=== PATIENT | male | born 1945 | race Caucasian/White ===

== ENCOUNTER 2017-11-22 11:32 | Observation (INO) | payer OTHER ==
--- NOTE | 2017-11-22 12:06 | EDPHY ---
H & P Time Seen by Provider: 11/22/17 11:54 HPI/ROS: CHIEF COMPLAINT: Trouble with short-term memory HISTORY OF PRESENT ILLNESS: Patient presents with his partner. He was doing normally this morning but 10:00 a.m. Suddenly had trouble with short-term memory. They are having guests over this weekend, and his partner asked him to move a table up stairs from the basement but he asked her why and that he did not remember people were coming over. He did not remember who the president was. These are all abnormal findings for him, lasted about 20 min, then resolved. Not associated with weakness or numbness in extremities double walking or headache or visual symptoms or difficulty with speech. REVIEW OF SYSTEMS: Eye: no change in vision ENT: no sore throat Cardiac: no chest pain or syncope Pulmonary: no cough or SOB Abdomen: no vomiting, diarrhea, abdominal pain Musculoskeletal: no back pain Skin: no rash Neuro: no headache Constitutional: no fever : no urinary symptoms A comprehensive 10 point review of systems is otherwise negative aside from elements mentioned in the history of present illness. PAST MEDICAL HISTORY: Cholesterol Social history: Primary care is Dr. Noah Aguirre General Appearance: Alert and conversant, cooperative. Eyes: No scleral icterus. Pupils equal and reactive extraocular motion intact ENT, Mouth: Normal mucous membranes. No tongue laceration or abrasion Respiratory: Normal respiratory effort, breath sounds equal, lungs are clear to auscultation. Cardiovascular: Regular rate and rhythm. Gastrointestinal: Abdomen is soft and non tender. Neurological: Alert, face symmetric, normal motor and sensory in extremities. Ambulatory, not ataxic, fluent speech, normal [id number] bilaterally without any pronator drift. Skin: Warm and dry, no rashes. Musculoskeletal: No peripheral edema. Psychiatric: Not agitated. Emergency Department course/MDM: Differential includes but not limited to transient global amnesia, stroke, TIA, intracranial mass or bleed. CT head, EKG, labs. Not a stroke alert as he is currently asymptomatic. 1314: Results discussed and plan for admission per Dr. Perry recommendation, consented. Per he recommends admission for TIA workup. Smoking Status: Never smoked Constitutional: Initial Vital Signs Temperature (C) 36.7 C 11/22/17 11:34 Heart Rate 83 11/22/17 11:34 Respiratory Rate 16 11/22/17 11:34 Blood Pressure 170/89 H 11/22/17 11:34 O2 Sat (%) 96 11/22/17 11:34 O2 Delivery Mode Room Air Allergies/Adverse Reactions: No Known Allergies Allergy (Unverified 11/22/17 11:36) Medical Decision Making - Diagnostics EKG Interpretation: 12-lead EKG interpreted by me; official reading is in trace master. My interpretation is sinus rhythm with left anterior fascicular block rate 76. Imaging Results: Imaging Impressions Head CT 11/22/17 12:04 Impression: 1. Mild age-related atrophy. 2. No hemorrhage, mass effect, or definite acute peripheral infarct. 3. Moderate nonspecific hypodensities in the white matter of bilateral cerebral hemispheres. Differential diagnosis includes microvascular ischemic disease, post-infectious/post-inflammatory sequela, atypical demyelinating disease, or migraine-related sequela. Small white matter lacunar infarcts may also have this appearance. If symptoms worsen, additional imaging may be necessary. Findings discussed with Zachery Pineda M.D. at 13:06 hour, 11/22/2017. Negative head CT per Dr. Leach at 1:06 p.m. Imaging: Discussed imaging studies w/ yard caller Radiologist Differential Diagnosis: Differential considered including but not limited to partial seizure, TIA, transient global amnesia, intracranial mass or bleed, metabolic abnormality. Consult/Admit Bed Type: [facility] at 1300, [facility] for [place] 1321 - Data Points Laboratory Results: Laboratory Results 11/22/17 12:30 11/22/17 12:30 11/22/17 11/22/17 11/22/17 12:35 12:30 12:30 WBC RBC Hgb Hct MCV MCH MCHC RDW Plt Count MPV Neut % (Auto) Lymph % (Auto) Emmons % (Auto) Eos % (Auto) Baso % (Auto) Nucleat RBC Rel Count Absolute Neuts (auto) Absolute Lymphs (auto) Absolute Monos (auto) Absolute Eos (auto) Absolute Basos (auto) Absolute Nucleated RBC Immature Gran % Immature Gran # PT 12.6 SEC SEC (12.0-15.0) INR 0.92 (0.83-1.16) Sodium 142 mEq/L mEq/L (135-145) Potassium 4.3 mEq/L mEq/L (3.3-5.0) Chloride 105 mEq/L mEq/L (97-110) Carbon Dioxide 25 mEq/l mEq/l (22-31) Anion Gap 12 mEq/L mEq/L (8-16) BUN 18 mg/dL mg/dL (7-23) Creatinine 0.9 mg/dL mg/dL (0.7-1.3) Estimated GFR > 60 Glucose 103 mg/dL H mg/dL (70-100) Calcium 9.9 mg/dL mg/dL (8.5-10.4) POC Troponin I 0.00 ng/mL ng/mL (0.00-0.08) 11/22/17 12:30 WBC 4.51 10^3/uL 10^3/uL (3.80-9.50) RBC 4.91 10^6/uL 10^6/uL (4.40-6.38) Hgb 16.1 g/dL g/dL (13.7-17.5) Hct 46.8 % % (40.0-51.0) MCV 95.3 fL fL (81.5-99.8) MCH 32.8 pg pg (27.9-34.1) MCHC 34.4 g/dL g/dL (32.4-36.7) RDW 13.0 % % (11.5-15.2) Plt Count 233 10^3/uL 10^3/uL (150-400) MPV 10.0 fL fL (8.7-11.7) Neut % (Auto) 73.3 % % (39.3-74.2) Lymph % (Auto) 16.6 % % (15.0-45.0) Emmons % (Auto) 8.6 % % (4.5-13.0) Eos % (Auto) 0.7 % % (0.6-7.6) Baso % (Auto) 0.4 % % (0.3-1.7) Nucleat RBC Rel Count 0.0 % % (0.0-0.2) Absolute Neuts (auto) 3.30 10^3/uL 10^3/uL (1.70-6.50) Absolute Lymphs (auto) 0.75 10^3/uL L 10^3/uL (1.00-3.00) Absolute Monos (auto) 0.39 10^3/uL 10^3/uL (0.30-0.80) Absolute Eos (auto) 0.03 10^3/uL 10^3/uL (0.03-0.40) Absolute Basos (auto) 0.02 10^3/uL 10^3/uL (0.02-0.10) Absolute Nucleated RBC 0.00 10^3/uL 10^3/uL (0-0.01) Immature Gran % 0.4 % % (0.0-1.1) Immature Gran # 0.02 10^3/uL 10^3/uL (0.00-0.10) PT INR Sodium Potassium Chloride Carbon Dioxide Anion Gap BUN Creatinine Estimated GFR Glucose Calcium POC Troponin I Point of Care Test Results: Chemistry 11/22/17 12:35 POC Troponin I 0.00 ng/mL ng/mL (0.00-0.08) Departure - Departure Disposition: [facility] Inpatient Acute Clinical Impression: Transient cerebral ischemia Qualifiers: Transient cerebral ischemia type: unspecified Qualified Code(s): G45.9 - Transient cerebral ischemic attack, unspecified Condition: Good
--- NOTE | 2017-11-22 12:22 | CPEKG ---
Heart Rate: 76 RR Interval: 789 P-R Interval: 148 QRSD Interval: 90 QT Interval: 400 QTC Interval: 450 P Rigby: 60 QRS Rigby: -44 T Wave Rigby: 25 EKG Severity - ABNORMAL ECG - EKG Impression: SINUS RHYTHM EKG Impression: LEFT ANTERIOR FASCICULAR BLOCK Electronically Signed By: Zachery Pineda 22-Nov-2017 12:35:29
[2017-11-22 12:45] LABS: PLATELET COUNT 233 10^3/uL (150-400)
[2017-11-22 12:52] LABS: INR 0.92 (0.83-1.16); PROTIME(PATIENT) 12.6 SEC (12.0-15.0)
--- NOTE | 2017-11-22 16:26 | ECHO ---
[email or web address] [address] Main: [phone] Fax: Transthoracic Echocardiogram Name: Kosta EUGENE MR#: [id number] Study Date: 11/22/2017 Study Time: 02:49 PM Date of : 1945 Age: 72 year(s) Height: 172.7 cm (68 in.) Weight: 78.93 kg (174 lb.) BSA: 1.93 m2 Gender: Male Examination: Echo Indication: TIA, Memory loss Image Quality: Contrast: Requested by: Scar Hernandez BP: 122 mmHg/78 mmHg Heart Rate: Rhythm: Indication: TIA, Memory loss Procedure Staff Event Crew Technician: Jordan Jaimes RDCS Reading Physician: Antonio Crisostomo MD Requesting Provider: Conclusions: Normal size left ventricle. Normal global systolic LV function. EF is 73 %. The mitral valve is normal in appearance and function. The aortic valve is tri-leaflet. There is no aortic valve regurgitation. No aortic valve stenosis is present. There is mild focal calcification on the right coronary aortic valve cusp.. The pulmonary artery pressure is normal. No old studies for comparison. Measurements: Chambers Valvular Assessment AV/MV Valvular Assessment TV/PV Normal Normal Normal Name Value Range Name Value Range Name Value Range Ao Cece (MM): 3.1 cm (2.2 cm-3.7 AV Vmax: 1.97 m/s (1 m/s-1.7 TR Vmax: 2.57 mm/s ( - ) cm) m/s) TR PGmax: 26 mmHg ( - ) IVSd (2D): 0.7 cm (0.6 cm-1.1 AV maxP mmHg ( - ) syst. PAP: 31 mmHg ( - ) cm) AV meanP mmHg ( - ) PV Vmax: 0.88 m/s (0.6 m/s-0.9 LVDd (2D): 4.6 cm (4.2 cm-5.9 LVOT Vmax: 1.03 m/s (0.7 m/s-1.1 m/s) cm) m/s) PV PGmax: 3 mmHg ( - ) LVDs (2D): 2.6 cm (2.1 cm-4 MV E Vmax: 0.81 m/s ( - ) cm) MV A Vmax: 0.98 m/s ( - ) LVPWd (2D): 1.0 cm (0.6 cm-1 MV E/A: 0.83 ( - ) cm) LVEF (2D): 73 (>=54 %) Continued Measurements: Chambers Valvular Assessment AV/MV Valvular Assessment TV/PV Patient: Kosta EUGENE Study Date: 11/22/2017 Page 1 of 2 02:49 PM Name Value Name Value Name Value LADs Lon.2 cm MV E' Septal: 0.07 m/s CVP (est.): 5 mmHg LA Area: 18.1 cm2 MV E/E' Septal: 11.30 MV E/E' Lateral: 7.40 Findings: Left Ventricle: Normal size left ventricle. No LV hypertrophy. Normal global systolic LV function. EF is 73 %. No regional wall motion abnormality. Diastolic dysfunction is present. . Right Ventricle: Normal size right ventricle. Normal RV function. Left Atrium: The left atrium is normal in size. Right Atrium: The right atrium is normal in size. Mitral Valve: The mitral valve is normal in appearance and function. There is no mitral valve regurgitation. Aortic Valve: The aortic valve is tri-leaflet. There is no aortic valve regurgitation. No aortic valve stenosis is present. There is mild focal calcification on the right coronary aortic valve cusp.. Tricuspid Valve: The tricuspid valve appears normal. Trivial tricuspid valve regurgitation. The pulmonary artery pressure is normal. Pulmonic Valve: The pulmonic valve is normal in appearance and function. Trivial pulmonic valve regurgitation. Aorta: The aorta is normal. Pericardium: No pericardial effusion. (No Signature Object) Patient: Kosta EUGENE Study Date: 11/22/2017 Page 2 of 2 02:49 PM [id number]
[2017-11-22] MEDS ORDERED: LORazepam 1 MG TAB PO ONE (16:47)
--- NOTE | 2017-11-22 17:29 | PDGENHP ---
History and Physical History and Physical: CC: Transient memory loss this morning HISTORY: This patient has been feeling well recently and has little in way of medical history was at home with his partner today when he suffered a transient episode of memory loss. What he and his partner both recall is that she asked him to move the table to another room because they have relatives coming in this weekend, and he completely forgot that the relatives were coming this week in even though this is something they have been planning for some time now and talking about frequently. When reminded that they were coming he says that it took him a few minutes but he did then remember that. With this going on however his partner started asking when questions and he had inability to name the president of the country, and answer certain other questions. He knew who he was and who she was and recognize that he was in their home. At no time did either of them notice any other focal neurologic dysfunction, visual change, balance or equilibrium issues, and he did not have headache. He was walking talking and doing other tasks without difficulty. He did feel nervous because of the memory symptoms. He denies any palpitations, chest pain, shortness of breath, fever symptoms, recent injuries or pump to the head, and no other significant medical symptoms at this time. He does state that he has had memory lapses in the past but these typically occur her 1st thing in the morning when he has had a lot to drink and it takes him a while to wake up fully and remember what he did the night before. He typically drinks quite a bit often fiber 6 oz of liquor, a bottle and a half to 2 bottles of wine, and sometimes some beer on top of that. Most of this alcohol is consumed in the evenings. He has been drinking like this for quite some time and does it on a daily basis. He has never been through alcohol withdrawal but does not go for any periods without drinking ROS: A comprehensive 10 system review revealed no other significant findings PAST MEDICAL HISTORY: Ongoing severe alcohol abuse Hyperlipidemia on statin Otherwise quite healthy without hospitalizations, surgeries, serious injuries or illnesses FAMILY MEDICAL HISTORY: No specific significant concerning family history SOCIAL HISTORY: Lives with Emerald, his partner Drinks very heavily, details above No tobacco use no street drugs MEDICATIONS: Daily Lipitor PHYSICAL EXAMINATION: Vital Signs: Some hypertension here initially otherwise stable without fever Pulp Grinder Feeder: All sinus rhythm Examination: General: alert, oriented, good mentation, relaxed; his memory now is very good on my exam with no specific issues identified Neurologic: normal speech/language, normal oracle applications analyst, no focal weakness, no pronator drift, no balance issues, no abnormal reflexes Skin: warm, dry, good color, no rash HEENT: normal Neck: no mass or jvd Resps: relaxed Lungs: clear breath sounds Heart: regular, no murmur Abdomen: soft, nondistended, nontender, +BS, no mass Upper Extremities: normal Lower Extremities: no edema, warm No Bleeding or bruising IV site: looks normal LABORATORY DATA: Normal troponin Unremarkable CBC, metabolic panel, coagulation studies RADIOLOGY STUDIES: CT scan of the head done in ER, I reviewed images: No acute abnormalities. Some ischemic gliosis type changes are noted He has had Doppler ultrasound of the carotid arteries with no evidence of any stenoses or plaque Echocardiogram has been done and read by warehouse logistics coordinator and is normal 12 LEAD EKG: Normal 12 lead EKG on my assessment of the tracing from the ER ASSESSMENT: # episode of transient memory dysfunction, resolved after 20 min at home without recurrence # hyperlipidemia on statin # severe alcohol abuse, chronic with very large daily consumption # risk of withdrawal, likely has some vitamin deficiency # [id number] blood pressure elevations now with no history of hypertension , likely secondary to his acute event This episode may be transient global amnesia although it was a fairly limited memory loss with most of his memory intact at the time, and episode lasting only 20 min. It does not particularly sound like was TIA however as we were not able to examine him during the episode will take the safe approach and assess him for any stroke risk factors so that we can recommend preventive care , and will watch him here with neurologic checks by the nurses in case he does have anything that starts look like stroke where we can begin treatment right away. Mass or other illness could potentially cause symptoms and will be further assessed radiologically PLANS: * Observation status on the neuro medical floor * Cardiac EKG monitoring * MRI of the brain has been ordered to look for any other causes of his symptoms (based on past MRI experiences he will need Ativan for this MRI study which could potentially muddy his examinations on neuro checks going forward and this should be taken into consideration as we assess the nursing data and examine him.) * Will follow his blood pressures closely. If they remain at the current ranged and resolve no treatment will be needed. Will treat if they get significantly more elevated * Continue statin and add daily aspirin * Dr. Washington will see the patient in the morning * Frequent neuro checks and TIA protocols, if the patient has any recurrent episodes reassess and if anything looks like a stroke he would be a candidate for thrombolysis * I had a very long talk with the patient and his partner about his alcohol abuse and the dangers is in parts. We discussed the possibility of alcohol withdrawal if he stops suddenly. I did recommend very strongly that he look carefully at his future and consider stopping alcohol use altogether whether that be on his own or through a rehabilitation setting or with other counseling. He did understand all this and was a very willing participate in the conversation * Will give thiamin at this time for presumed deficiency * Will give low-dose alcohol at this time at 1 oz of vodka twice daily to help insure that withdrawal does not start up in the midst of this current assessment I have reviewed the patient's case in detail with Dr. Scar Hernandez I have reviewed the patient's past medical records as part of this assessment, including previous outpatient laboratory studies
[2017-11-22] MEDS ORDERED: ONDANSETRON 4 MG/2 ML VIAL IVP PRN (17:32)
[2017-11-22] MEDS ORDERED: ACETAMINOPHEN 325 MG TAB PO PRN (17:32)
[2017-11-22] MEDS ORDERED: ONDANSETRON DISINTEGRATING 4 MG TAB PO PRN (17:32)
[2017-11-22] MEDS: THIAMINE HCL 100 MG TAB PO SCH (18:48)
[2017-11-22] MEDS: VODKA 50 ML BOTTLE PO SCH (20:47)
[2017-11-23 07:57] VITALS: BP 136/84
[2017-11-23] MEDS ORDERED: ASPIRIN EC 325 MG TAB PO SCH (09:00)
[2017-11-23] MEDS ORDERED: ATORVASTATIN CALCIUM 20 MG TAB PO SCH (09:00)
--- NOTE | 2017-11-23 09:14 | NEUROPROG ---
Assessment: [id number] - Neurology Consult: - CC: Dr. Zachery Rose consulted neurology for transient memory issues. - HPI: Pt admitted to [facility] on 11/22/17 when he had 20 minutes of impaired short term memory with full recovery afterwards. No associated weakness, numbness, or other neurologic symptoms. Head CT shows no acute changes. I initially saw the patient on 11/23/17. Neurologic exam normal and patient feels back to normal. Brain MRI, TTE, and carotid U/S all unremarkable. I felt the patient likely had transient global amnesia which is a self limited condition. I recommended a daily aspirin 81 mg qd and /u with me in 1-4 weeks after hospital discharge. - PMHx: HLD - SHx: speaks hong konger FHx: NC - ROS: Pt denied acute fever, total vision loss, active severe chest pain, respiratory failure, total body severe rash, total bowel/bladder incontinence, psychosis, active seizures, or active bleeding - O: VS reviewed General: Alert Eyes: Fundoscopic exam not able to visualize optic disks CV: Heart RRR, no murmur, no carotid bruit Lungs: Clear to auscultation bilaterally, no rhonchi or rales Neuro: - Mental: . Oriented x person/place/date . concentration appears normal . speech fluency/comprehension normal . memory appears normal . fund of knowledge appear intact - Cranial Nerves: . II: PERRL, VFFTC . III/IV/: EOMI, no nystagmus, normal smooth pursuits, no Ptosis . V: facial sensation intact to LT . VII: face symmetric to eye closure and smile . VIII: hearing intact to conversation . IX/X: uvula raises symmetrically . XI: SCM 5/5 B/L strength . XII: tongue protrudes midline w/nl strength - Motor: . Tone: normal tone in all 4 extremity . Strength: no pronator drift, strength 5/5 throughout (B/L delt, bic, tri, hand rubbing bed operator, hf/he, df/pf) - Reflexes: B/L bic/BR/patella 2/4 - Sensory: all 4 extremity intact to light touch - Coord: [id number]-ms-ftcl wnl, RUBIO wnl, erij-cc-scye wnl - Gait: deferred - NIH SS 0 - Labs: 11/22/17- CBC wnl, Chem wnl, LDL 104, H1AC 5.9 - Rads: 11/22/17- Head CT: no acute changes (I personally visualized the images on ) 11/22/17- TTE: EF 73%, no cardiac thrombus reported 11/22/17- Brain MRI w/o con: no acute changes 11/22/17- Carotid U/S: unremarkable - Assessment: 1. Transient Global Amnesia (TGA): Normal neurologic exam on 11/22/17. Unremarkable brain MRI, TTE, and carotid U/S. TGA is a self limited diagnosis but I will recommend patient begin daily aspirin 81 mg qd to cover small chance this was an atypical TIA. - Plan: - Change ASA 325 mg qd to 81 mg qd for stroke prevention - No further neurologic w/u needed, neurology will sign off - F/U in neurology clinic 1-4 weeks after discharge with Dr. Hernandez Objective: Vital Signs Temp Pulse Resp BP Pulse Ox 36.7 C 65 16 136/84 H 95 11/23/17 07:57 11/23/17 07:57 11/23/17 07:57 11/23/17 07:57 11/23/17 07:57 11/22/17 11/23/17 11/24/17 05:59 05:59 05:59 Intake Total 350 Balance 350 PT 12.6 SEC (12.0-15.0) 11/22/17 12:30 INR 0.92 (0.83-1.16) 11/22/17 12:30 Allergies/Adverse Reactions: No Known Allergies Allergy (Verified 11/22/17 13:45)
--- NOTE | 2017-11-23 10:23 | ASMTLACE ---
LACE Length of stay for Answers: 1 day current admission Acuity / Level of Answers: No Care: Did the patient have an inpatient admission? Comorbidities - select Answers: Other Notes: HLD all that apply # of Emergency department Answers: 1-2 visits in the last 6 months Social determinants Answers: History of substance abuse (ETOH, street drugs, prescription drugs, etc.) Score: 6 Date Signed: 11/23/2017 10:22 AM Electronically Signed By:RAMON Ramires
[2017-11-23] MEDS: VODKA 50 ML BOTTLE PO SCH (11:05)
[2017-11-23] MEDS: THIAMINE HCL 100 MG TAB PO SCH (11:06)
--- NOTE | 2017-11-23 14:48 | ASMTCMCOM ---
CM Note CM Note Notes: Pt medically stable for d/c, no CM d/c needs identified. Date Signed: 11/23/2017 02:47 PM Electronically Signed By:RAMON Ramires
--- NOTE | 2017-11-23 17:47 | PDDCSUM ---
Discharge Summary Discharge Summary: DISCHARGE SUMMARY FOLLOW-UP ITEMS: Jacek alcohol consumption DATE OF ADMISSION: 11/22/2017 DATE OF DISCHARGE: 11/23/2017 DISCHARGE DIAGNOSES: 1. Suspected acute transient global amnesia 2. Chronic alcohol abuse CONSULTATIONS: Neurology PROCEDURES / IMAGING: Brain MRI demonstrating no infarct, transthoracic echocardiogram demonstrating no significant valvular issues, carotid ultrasounds demonstrating no flow- limiting stenosis CHIEF COMPLAINT: Impaired memory for approximately 20 min, spontaneously resolved SUBJECTIVE: Patient is feeling well at time discharge, his memory has returned PHYSICAL EXAM ON DISCHARGE: Systolic blood pressure 130-170, heart 50-70, afebrile overnight, satting well on room air, alert awake oriented x3, no apparent distress, no tremulousness LABS ON DISCHARGE: Hemoglobin A1c 5.9%, LDL 104 HOSPITAL COURSE BY PROBLEM: The patient presented with acute, impaired short-term memory, lasting approximately 20 min, without any associated paresthesias or paresis. The patient's symptoms resolved without any intervention. The patient underwent evaluation with MRI, echocardiogram, carotid ultrasounds, and telemetry, without any clearly identifiable precipitating pathologic etiology. Consequently, the patient most likely has diagnosis of exclusion which is transient global amnesia, and Dr. Cade Hernandez has recommended initiation of aspirin 81 mg for primary prevention of CVA/CAD, as well as outpatient neurology follow-up. The patient also freely admitted that he does consume more alcohol on a nightly basis then may otherwise be considered ideal, and although the patient denies any negative consequences or impression of his alcohol consumption, I have advised the patient that his consumption of approximately 4 alcoholic beverages on a nightly basis may be excessive and he may benefit from reducing his consumption down to 1-2 beverages on a nightly basis, given his advanced age and evolving body water/fat/muscle distribution. Is unclear whether the patient's alcohol consumption has any relation to his transiently impaired short-term memory, as no tox screen or alcohol level was drawn on presentation. The patient does express interest in reducing his alcohol intake to avoid negative consequences and I recommended that he continue to honestly discuss this issue with his primary care provider moving forward. DISCHARGE MEDICATIONS: Please see official discharge medication reconciliation sheet in chart , aspirin 81 mg daily. DISCHARGE INSTRUCTIONS: Please follow up with primary care provider next week, Dr. Hernandez thereafter.
== END 2017-11-23 11:40 | disposition home or self-care (01) ==
LOC: F3N 14:38
PROVIDERS: ADMIT Internal Medicine; ATTEND Internal Medicine
DX: G45.4 Transient global amnesia (principal); F10.10 Alcohol abuse, uncomplicated
CPT/HCPCS: 70450; 70551; 92523; 93005; 93306; 93880; 97161; 97165; 99285; G0378; G8978; G8979; G8980; G8987; G8988; G8989; G9168; G9169; G9170; 84484-PO